=== PATIENT | female | born 1950 | race Two or more races ===

== ENCOUNTER 2024-04-17 07:38 | Emergency (ER) | payer OTHER, MEDICAID ==
[~2024-04-17] VITALS: Ht 157.5 cm; Wt 67.1 kg
[2024-04-17] MEDS ORDERED: LIDOCAINE 1%-EPI 1:100,000 20 ML VIAL ONE (07:57)
[2024-04-17] MEDS ORDERED: ACETAMINOPHEN ES 500 MG TABLET ONE (07:57)
[2024-04-17] MEDS ORDERED: TDAP [DIPH/PERTUSSIS/TET] 0.5 ML VIAL IM ONE (07:58)
[2024-04-17] MEDS: TDAP [DIPH/PERTUSSIS/TET] 0.5 ML VIAL IM ONE (08:00)
[2024-04-17] MEDS: ACETAMINOPHEN ES 500 MG TABLET PO ONE (08:01)
[2024-04-17] MEDS: LIDOCAINE 1%-EPI 1:100,000 20 ML VIAL TP ONE (08:04)
[2024-04-17 09:36] VITALS: BP 133/61; TEMP 98.8; O2SAT 97
== END 2024-04-17 09:35 | disposition home or self-care (01) ==
LOC: ER 07:45
DX: S01.81XA Laceration without foreign body of other part of head, initial encounter (principal); I10 Essential (primary) hypertension; E78.5 Hyperlipidemia, unspecified; W18.39XA Other fall on same level, initial encounter; Y93.89 Activity, other specified; Y92.89 Other specified places as the place of occurrence of the external cause; Y99.8 Other external cause status
CPT/HCPCS: 12053; 70450; 90471; 90715; 99285; A6403; J3490

== ENCOUNTER 2024-04-24 08:20 | Emergency (ER) | payer MEDICAID, OTHER ==
[~2024-04-24] VITALS: Ht 154.9 cm; Wt 74.8 kg
[2024-04-24 08:38] VITALS: BP 139/69; TEMP 97.9; O2SAT 99
== END 2024-04-24 09:01 | disposition home or self-care (01) ==
LOC: ER 08:25
DX: S01.81XD Laceration without foreign body of other part of head, subsequent encounter (principal); I10 Essential (primary) hypertension; E78.5 Hyperlipidemia, unspecified; Z48.02 Encounter for removal of sutures; X58.XXXD Exposure to other specified factors, subsequent encounter